=== PATIENT | female | born 1965 | race Caucasian/White ===

== ENCOUNTER 2017-06-18 19:50 | Inpatient (IN) | payer BC ==
--- NOTE | 2017-06-18 19:56 | PDOC ---
History of Present Illness - General Stated Complaint: SUICIDAL Time Seen by Provider: 06/18/17 19:56 - History of Present Illness Initial Comments: 06/18/17 20:16 Ms. Che is a 52 yo woman w/ pmh of anxiety and depression who presents following consumption of an unknown quantity of ambien and Xanax. Patient confirms this was an effort to take her life as she has been feeling down lately. Per [id number] who is with her this is at least her second attempt. The patient denies chest pain, shortness of breath, headache and dizziness. Denies fever, chills, nausea, vomit, diarrhea and constipation. Denies dysuria, frequency, urgency and hematuria. Allergies: Lorset / percocet (Passes out when she has these) Past History - Past Medical History Allergies/Adverse Reactions: Allergies Allergy/AdvReac Type Severity Reaction Status Date / Time No Known Allergies Allergy Verified 06/18/17 20:13 Review of Systems - Review of Systems Comments:: 06/18/17 20:21 GENERAL/CONSTITUTIONAL: No fever or chills. No weakness. HEAD, EYES, EARS, NOSE AND THROAT: No change in vision. No ear pain or discharge. No sore throat. CARDIOVASCULAR: No chest pain or shortness of breath RESPIRATORY: No cough, wheezing, or hemoptysis. GASTROINTESTINAL: No nausea, vomiting, diarrhea or constipation. GENITOURINARY: No dysuria, frequency, or change in urination. MUSCULOSKELETAL: No joint or muscle swelling or pain. No neck or back pain. SKIN: No rash NEUROLOGIC: No headache, vertigo, loss of consciousness, or change in strength/ sensation. ENDOCRINE: No increased thirst. No abnormal weight change HEMATOLOGIC/LYMPHATIC: No anemia, easy bleeding, or history of blood clots. ALLERGIC/IMMUNOLOGIC: No hives or skin allergy. *Physical Exam - Physical Exam Comments: 06/18/17 20:24 GENERAL: Awake, alert, and fully oriented, in no acute distress HEAD: No signs of trauma, normocephalic, atraumatic EYES: PERRLA, EOMI, sclera anicteric, conjunctiva clear ENT: Auricles normal inspection, hearing grossly normal, nares patent, oropharynx clear without exudates. Moist mucosa NECK: Normal ROM, supple, no lymphadenopathy, JVD, or masses LUNGS: No distress, speaks full sentences, clear to auscultation bilaterally HEART: Regular rate and rhythm, normal S1 and S2, no murmurs, rubs or gallops, peripheral pulses normal and equal bilaterally. ABDOMEN: Soft, nontender, normoactive bowel sounds. No guarding, no rebound. No masses EXTREMITIES: Normal inspection, Normal range of motion, no edema. No clubbing or cyanosis. NEUROLOGICAL: Cranial nerves II through XII grossly intact. Normal speech, normal gait, no focal sensorimotor deficits SKIN: Warm, Dry, normal turgor, no rashes or lesions noted. ED Treatment Course - LABORATORY CBC & Chemistry Diagram: 06/18/17 20:15 06/18/17 20:15 Medical Decision Making - Medical Decision Making 06/18/17 20:24 Ms. Che is a 52 yo female w/ pmh as described who presents following suicide attempt. Utox evaluation started, patient put on 1:1 observation, EKG ordered for cardiac evaluation, patient put on high school learning support teacher, fluids administered. 06/18/17 20:44 EKG tachycardic, otherwise regular rhythm, normal access, normal interval, no ST elevations or depressions. 06/18/17 21:17 Dr. Rayo paged for psych consult. Paging inpatient team for admission. 06/18/17 21:[address] Rayo who will evaluate in AM. 06/18/17 21:51 Patient admitted to hospitalist. *DC/Admit/Observation/Transfer Diagnosis at time of Disposition: Suicidal ideations Overdose Qualifiers: Encounter type: initial encounter Injury intent: intentional self-harm Qualified Code(s): T50.902A - Poisoning by unspecified drugs, medicaments and biological substances, intentional self-harm, initial encounter - Discharge Dispostion Condition at time of disposition: Guarded Admit: Yes - Referrals Referrals: ON STAFF,NOT [Primary Care Provider] - - Patient Instructions - Post Discharge Activity
[2017-06-18] MEDS ORDERED: SODIUM CHLORIDE 1,000 ML IV STA (20:16)
[2017-06-18 20:25] LABS: ADD RBC MORPHOLOGY YES; BASO % 0.3 % (0-2.0); EOS % 0.1 % (0-4.5); HEMATOCRIT 39.4 % (32.4-45.2); HEMOGLOBIN 13.4 GM/dL (10.7-15.3); LYMPH % 5.4 % (8-40); MCH 37.8 pg (25.7-33.7); MCHC 34.1 g/dl (32.0-36.0); MEAN CELL VOLUME 110.7 fl (80-96); MEAN PLT VOLUME 7.5 fl (7.5-11.1); MONO % 6.4 % (3.8-10.2); NEUT % 87.8 % (42.8-82.8); PLATELET COUNT 158 K/MM3 (134-434); RBC 3.55 M/mm3 (3.60-5.2); RDW 14.8 % (11.6-15.6); WHITE BLOOD COUNT 7.6 K/mm3 (4.0-10.0)
[2017-06-18 20:44] LABS: ACETAMINOPHEN < 2.000 ug/mL; ALBUMIN 3.5 g/dl (3.4-5.0); ALK PHOS 71 U/L (45-117); ANION GAP 11 (8-16); BILIRUBIN,TOTAL 0.8 mg/dL (0.2-1.0); BLOOD UREA NITROGEN 5 mg/dL (7-18); CALCIUM 8.1 mg/dL (8.5-10.1); CHLORIDE 107 mmol/L (98-107); CO2 24 mmol/L (21-32); CREATININE 0.5 mg/dL (0.55-1.02); GLUCOSE,RANDOM 87 mg/dL (74-106); POTASSIUM 3.7 mmol/L (3.5-5.1); SALICYLATE < 1.700 mg/dL; SGOT/AST 176 U/L (15-37); SGPT/ALT 101 U/L (12-78); SODIUM 142 mmol/L (136-145); TOT PROT 6.1 g/dl (6.4-8.2)
[2017-06-18 21:09] LABS: ANISOCYTOSIS 2+; PLATELET ESTIMATE DECREASED
--- NOTE | 2017-06-18 21:09 | PDOC ---
Attending Attestation - HPI HPI: 06/18/17 21:23 The patient is a 52 year old female with a significant past medical history of anxiety and depression who presents to the ED s/p suicide attempt earlier today. The patient reports taking an unknown quantity of ambien and Xanax as an effort to taker her life. Patient states she has been feeling down lately. As per brother in law, this is the patients second suicide attempt. Denies chest pain or shortness of breath. Denies headache and dizziness. Denies fever, chills, nausea, vomiting, or diarrhea. Denies dysuria or change in urinary output. Denies any other symptoms. Documentation prepared by Joel Cortes, acting as biomedical manager for Franco Renner MD - Physicial Exam PE: 06/18/17 21:23 Vitals: Triage Vital signs reviewed General Appearance: no acute distress, well nourished well developed, Head: Atraumatic, normocephalic Eyes: Pupils equal reactive round, extraocular movement intact Ears: TM's normal bilaterally; Nose: Nares patent bilaterally;no nasal congestion Throat: Posterior oropharynx without erythema, mucous membranes moist, Neck: Supple;No Nuchal rigidity Chest Wall: Nontender Cardiac: Regular rate and rhythm, no murmurs, no rubs, no gallops, Lungs: Clear to auscultation bilateral, good air movement bilaterally, Abdomen: Soft, nondistended, normal bowel sounds, nontender to palpation Rectal: Exam deferred Extremities: Full range of motion to all extremities, no cyanosis, clubbing, or edema Skin: Warm and dry, no rashes or lesions, no petechiae Neuro: AOX3; Cranial Nerves 2-12 grossly c intact, Strength intact to all extremities, Sensation intact to all extremities Psych: normal mood, normal affect <Joel Cortes - Last Filed: 06/18/17 21:23> - Resident Resident Name: Hector Wallace - ED Attending Attestation I have performed the following: I have examined & evaluated the patient, The case was reviewed & discussed with the resident, I agree w/resident's findings & plan, Exceptions are as noted - Medical Decision Making 52 with pmh sig for anxiety depression p/w intentional OD on xanex. Took "hand full" of pill VS stable. Labs wnl Pt. sleepy but arousable, maintaining airway. Will observe overnight to allow pt. to metabolize xanex, the psychiatry consultation in am Pt. placed on 1:1 watch, Psych consulted. <Franco Renner - Last Filed: 06/18/17 23:55>
--- NOTE | 2017-06-18 22:03 | PN ---
Teaching Attending Note Name of Resident: Whitney Elena ATTENDING PHYSICIAN STATEMENT I saw and evaluated the patient. Chart, data reviewed. I reviewed the resident's note and discussed the case with the resident. I agree with the resident's findings and plan as documented. SUBJECTIVE: 52 year old female with a significant past medical history of anxiety and depression presented s/p suicide attempt 06/18. Previous suicide attempt in 2017. The patient reported taking "handfull" of pills of ambien and Xanax in an effort to end her life. She also drank some whiskey. She lives in [place] but traveled to [place] to help some relatives. She reports being depressed because of some sicknesses in her family. OBJECTIVE: Last Vital Signs Temp Pulse Resp BP Pulse Ox 98.2 F 106 H 20 136/86 99 06/18/17 20:10 06/18/17 20:10 06/18/17 20:10 06/18/17 20:10 06/18/17 20:10 general- drowsy, nad, aaox3 heent- perrla, no scleral pallor, no scleral icterus neck -supple, no masses cv -s1+s2+rrr chest - cta abdomen -soft, nt, BS+ skin- scaly lesions on extensor surfaces of legs, forearms Abnormal Lab Results 06/18/17 06/18/17 06/18/17 20:15 20:15 20:40 RBC 3.55 L MCV 110.7 H MCH 37.8 H Neutrophils % 87.8 H Lymphocytes % 5.4 L BUN 5 L Creatinine 0.5 L Calcium 8.1 L AST 176 H ALT 101 H Total Protein 6.1 L Alcohol, Quantitative 86.23 H* EKG -nsr, no qtc prolongation ASSESSMENT AND PLAN: #52yo woman s/p suicide attempt with xanax and ambien, binge etoh intake with transaminitis on her chemistry. Psych control equipment electrician was contacted and aware. Poison control contact- spoke with Jason. Patient now clinically stable, admitted for observation and suicidal ideation. -tele/obs -NPO -psych consult -repeat hepatic panel -liver U/S -hep b, a, c serologies -urine toxicology -UA -IV fluid hydration -CXR -one to one observation for suicidal ideation -thiamine/folate/MV PO -avoid sedatives for now -heparin sc for DVT ppx
[2017-06-18] MEDS: SODIUM CHLORIDE 1,000 ML IV SCH (22:19)
[2017-06-18 22:42] LABS: COCAINE, UR NEGATIVE ng/ml (CUTOFF=300); METHADONE, UR NEGATIVE ng/ml (CUTOFF=300); OPIATES, URI NEGATIVE ng/ml (CUTOFF=300); PHENCYCLIDINE,URINE NEGATIVE ng/ml (CUTOFF=25); URINE AMPHETAMINES NEGATIVE ng/ml (CUTOFF=500); URINE BARBITURATES NEGATIVE ng/ml (CUTOFF=200)
[2017-06-18 22:43] LABS: URINE BENZODIAZEPINES POSITIVE ng/ml (CUTOFF=200)
--- NOTE | 2017-06-18 22:44 | HP ---
CHIEF COMPLAINT: medication overdose/suicide attempt psychiatrist Dr. Billy in [place] HISTORY OF PRESENT ILLNESS: 52 yr old woman with anxiety d/o brought in by family after patient admits to takin 8 xanax and 1 lexapro pill with 1 glass of whiskey in a suicide attempt due to feeling overwhelmed. She has been caring for her for the last year after he had a fistula, her father, her mother and she were found to have influenza type a earlier this year and providing care for everyone has increased stress level. she was in [place] to help care for her 's parents. This is her 2nd attempt, 1 previous psych admission for 2 days for anxiety. 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 Pollo Billy in (30d supply) - last picked up escitalopram 10mg tablets prescribed by Dr. Pollo Billy in (30d supply) - last picked up zolpidem 5mg tablets prescribed by Dr. Pollo Billy in 2017 (30d supply) REVIEW OF SYSTEMS CONSTITUTIONAL: Absent: fever, chills, diaphoresis, generalized weakness, malaise, loss of appetite, weight change HEENT: Absent: rhinorrhea, nasal congestion, throat pain, throat swelling, difficulty swallowing, mouth swelling, visual changes CARDIOVASCULAR: Absent: chest pain, syncope, palpitations, irregular heart rate, lightheadedness , peripheral edema RESPIRATORY: Absent: cough, shortness of breath, dyspnea with exertion, orthopnea, wheezing, stridor, hemoptysis GASTROINTESTINAL: Absent: abdominal pain, abdominal distension, nausea, vomiting, diarrhea, constipation, melena, hematochezia GENITOURINARY: Absent: dysuria, frequency, urgency, hesitancy, hematuria, flank pain, genital pain MUSCULOSKELETAL: Absent: myalgia, arthralgia, joint swelling, back pain, neck pain SKIN: Absent: rash, itching, pallor HEMATOLOGIC/IMMUNOLOGIC: Absent: easy bleeding, easy bruising, lymphadenopathy, frequent infections ENDOCRINE: Absent: unexplained weight gain, unexplained weight loss, heat intolerance, cold intolerance NEUROLOGIC: Absent: headache, focal weakness or paresthesias, dizziness, unsteady gait, seizure, mental status changes, bladder or bowel incontinence PSYCHIATRIC: Present: anxiety,depression, suicidal ideation - denies currently in ED Absent: homicidal ideation, hallucinations PHYSICAL EXAMINATION Vital Signs - 24 hr 06/18/17 20:10 Temperature 98.2 F Pulse Rate 106 H Respiratory 20 Rate Blood Pressure 136/86 O2 Sat by Pulse 99 Oximetry (%) GENERAL: Awake, alert with mild tiredness, and fully oriented, in no acute distress. HEAD: Normal with no signs of trauma. EYES: Pupils equal, round and reactive to light, extraocular movements intact, sclera anicteric, conjunctiva clear. No lid lag. EARS, NOSE, THROAT: oropharynx clear without exudates. Moist mucous membranes. no thrush NECK: Normal range of motion, supple without lymphadenopathy, JVD, or masses. LUNGS: Breath sounds equal, clear to auscultation bilaterally. No wheezes, and no crackles. No accessory muscle use. HEART: Regular rhythm, tachycardia, normal S1 and S2 without murmur, rub or gallop. ABDOMEN: obese, Soft, nontender, not distended, normoactive bowel sounds, no guarding, no rebound, no masses. No hepatomegaly or splenomegaly. MUSCULOSKELETAL: Normal range of motion at all joints. No bony deformities or tenderness. No CVA tenderness. UPPER EXTREMITIES: 2+ radial pulses, warm, well-perfused. No cyanosis. No clubbing. No peripheral edema. LOWER EXTREMITIES: 2+ dp pulses, warm, well-perfused. No calf tenderness. No peripheral edema. NEUROLOGICAL: Cranial nerves II-XII intact. Normal speech. facial symmetry, 5/ 5 hand sr. director product management/biceps/triceps/shoulder extension and flexoin, 5/5 hip/knee and ankle flexion and extension. sensation intact. mild resting tremor in b/l UE. finger to nose in tact b/l. PSYCHIATRIC: Cooperative. Good eye contact. Appropriate mood and affect. denies visual or auditory hallucinations SKIN: Warm, dry, normal turgor, normal capillary refill. +scalr plaques on extensor areas. Laboratory Results - last 24 hr 06/18/17 06/18/17 06/18/17 20:15 20:15 20:40 WBC 7.6 RBC 3.55 L Hgb 13.4 Hct 39.4 MCV 110.7 H MCH 37.8 H MCHC 34.1 RDW 14.8 Plt Count 158 MPV 7.5 Neutrophils % 87.8 H Lymphocytes % 5.4 L Monocytes % 6.4 Eosinophils % 0.1 Basophils % 0.3 Platelet Estimate Decreased Platelet Comment No clumping noted Anisocytosis 2+ Microcytosis 1+ Sodium 142 Potassium 3.7 Chloride 107 Carbon Dioxide 24 Anion Gap 11 BUN 5 L Creatinine 0.5 L Creat Clearance w eGFR > 60 Random Glucose 87 Calcium 8.1 L Total Bilirubin 0.8 AST 176 H ALT 101 H Alkaline Phosphatase 71 Total Protein 6.1 L Albumin 3.5 Salicylates < 1.700 Acetaminophen < 2.000 Alcohol, Quantitative 86.23 H* ASSESSMENT/PLAN: 52 yr old woman with anxiety d/o placed on tele observation for drug and alcohol intoxication in a suicidal attempt awaiting psych consult. #Drug overdose in suicide attempt- benzodiazapine in utox + ETOH level of 86 - called poison control discussed with Jason, if no EKG changes and patient is conversant, repeat LFT's for trend, get salicylate and tylenol level(both negative), pt should only need supportive measures. - place on tele monitoring to monitor cardiac and continuous pulse - place on 1:1 monitoring - psych consult Dr. Rayo - continue NS - chest xray incase she aspirated #ETOH use - CIWA 2, monitor off librium for now - monitor for DT's - thiamine and folic acid po #transaminitis - likely etoh use or tyenol metabolites cause liver damage( however she denies tylenol intake) - r/o hepatitis, liver u/s for obstruction #DVT:hep sub tid #diet: NPO until mentation fully alert due to risk of aspiration, allow meds. Visit type - Emergency Visit Emergency Visit: Yes ED Registration Date: 06/18/17 Care time: The patient presented to the Emergency Department on the above date and was hospitalized for further evaluation of their emergent condition. - New Patient This patient is new to me today: Yes Date on this admission: 06/19/17 - Critical Care Critical Care patient: No Hospitalist Screening - Colonoscopy Questionnaire Colonoscopy Questionnaire: Colonoscopy Questionnaire - Patient: 50 - 75 years old and never had a screening colonoscopy: Unknown History of colon or rectal polyps, or CA: Unknown History of IBD, Crohn's disease or UC: Unknown History of abdominal radiation therapy as a child: Unknown - Relative: 1 with colon or rectal CA, or polyps at age 60 or younger: Unknown Colon or rectal CA diagnosed at age 45 or younger: Unknown Multiple relatives with colon or rectal CA: Unknown - Outcome: Screening Result: Negative Screen
[2017-06-18 22:55] LABS: URINE APPEARANCE CLEAR; URINE BILIRUBIN NEGATIVE (<2.0 mg/dL); URINE BLOOD NEGATIVE (NEGATIVE); URINE COLOR LTYELLOW; URINE GLUCOSE (UA) NEGATIVE (NEGATIVE); URINE KETONE 1+ (NEGATIVE); URINE LEUK ESTERASE NEGATIVE (NEGATIVE); URINE NITRITE NEGATIVE (NEGATIVE); URINE PROTEIN NEGATIVE (NEGATIVE); URINE UROBILINOGEN NEGATIVE mg/dL (0.2-1.0)
[2017-06-18 23:03] LABS: BILIRUBIN,DIRECT 0.5 mg/dL (0.0-0.2)
[2017-06-19 02:45] VITALS: BMI 25.7
[2017-06-19 03:43] LABS: ALBUMIN 3.3 g/dl (3.4-5.0); ANION GAP 8 (8-16); BILIRUBIN,TOTAL 1.3 mg/dL (0.2-1.0); BLOOD UREA NITROGEN 5 mg/dL (7-18); CALCIUM 7.6 mg/dL (8.5-10.1); CHLORIDE 106 mmol/L (98-107); CO2 28 mmol/L (21-32); CREATININE 0.5 mg/dL (0.55-1.02); GLUCOSE,RANDOM 82 mg/dL (74-106); POTASSIUM 3.7 mmol/L (3.5-5.1); SGOT/AST 138 U/L (15-37); SGPT/ALT 85 U/L (12-78); SODIUM 142 mmol/L (136-145); TOT PROT 5.7 g/dl (6.4-8.2)
[2017-06-19 03:45] LABS: ALK PHOS 68 U/L (45-117)
[2017-06-19] MEDS: HEPARIN NA (PORCINE) 5,000 UNITS/ML 1ML VIAL SQ SCH ×3 (06:07→21:44)
[2017-06-19 07:13] LABS: BASO % 0.6 % (0-2.0); EOS % 0.4 % (0-4.5); HEMATOCRIT 37.3 % (32.4-45.2); HEMOGLOBIN 12.9 GM/dL (10.7-15.3); LYMPH % 14.7 % (8-40); MCH 38.4 pg (25.7-33.7); MCHC 34.7 g/dl (32.0-36.0); MEAN CELL VOLUME 110.7 fl (80-96); MEAN PLT VOLUME 7.9 fl (7.5-11.1); MONO % 9.8 % (3.8-10.2); NEUT % 74.5 % (42.8-82.8); PLATELET COUNT 141 K/MM3 (134-434); RBC 3.37 M/mm3 (3.60-5.2); RDW 14.7 % (11.6-15.6); WHITE BLOOD COUNT 4.7 K/mm3 (4.0-10.0)
[2017-06-19 07:35] LABS: ALBUMIN 3.5 g/dl (3.4-5.0); BILIRUBIN,DIRECT 0.6 mg/dL (0.0-0.2); BILIRUBIN,TOTAL 1.6 mg/dL (0.2-1.0)
[2017-06-19 07:41] LABS: ALBUMIN 3.4 g/dl (3.4-5.0); ANION GAP 12 (8-16); BLOOD UREA NITROGEN 5 mg/dL (7-18); CALCIUM 7.9 mg/dL (8.5-10.1); CHLORIDE 105 mmol/L (98-107); CO2 24 mmol/L (21-32); CREATININE 0.5 mg/dL (0.55-1.02); GLUCOSE,RANDOM 81 mg/dL (74-106); MAGNESIUM 1.7 mg/dL (1.8-2.4); PHOSPHOROUS 2.9 mg/dL (2.5-4.9); POTASSIUM 3.8 mmol/L (3.5-5.1); SGOT/AST 133 U/L (15-37); SGPT/ALT 83 U/L (12-78); SODIUM 141 mmol/L (136-145)
[2017-06-19 07:43] LABS: ALK PHOS 70 U/L (45-117); BILIRUBIN,TOTAL 1.6 mg/dL (0.2-1.0); TOT PROT 5.8 g/dl (6.4-8.2)
[2017-06-19] MEDS: MULTIVITAMINS (DAILY MVI) TABLET (FP) PO SCH (09:27)
[2017-06-19] MEDS ORDERED: MAGNESIUM 2GM/50ML STERILE WATER IVPB IVPB ONE (10:38)
--- NOTE | 2017-06-19 10:38 | PN ---
Progress Note (short form) - Note Progress Note: Subjective: no fever ro chills , nO SI AT THIS TIME,. feels ashamed of her self. reports side effects to SSRIS and other deperession meds in past. no abd pain Objective: Vital Signs: Last Vital Signs Temp Pulse Resp BP Pulse Ox 98.8 F 114 H 18 161/96 97 06/19/17 08:44 06/19/17 08:44 06/19/17 08:44 06/19/17 08:44 06/19/17 08:44 Laboratory Results - last 24 hr 06/18/17 06/18/17 06/18/17 20:15 20:15 20:40 WBC 7.6 RBC 3.55 L Hgb 13.4 Hct 39.4 MCV 110.7 H MCH 37.8 H MCHC 34.1 RDW 14.8 Plt Count 158 MPV 7.5 Neutrophils % 87.8 H Lymphocytes % 5.4 L Monocytes % 6.4 Eosinophils % 0.1 Basophils % 0.3 Platelet Estimate Decreased Platelet Comment No clumping noted Anisocytosis 2+ Microcytosis 1+ Sodium 142 Potassium 3.7 Chloride 107 Carbon Dioxide 24 Anion Gap 11 BUN 5 L Creatinine 0.5 L Creat Clearance w eGFR > 60 Random Glucose 87 Calcium 8.1 L Phosphorus Magnesium Total Bilirubin 0.8 Direct Bilirubin 0.5 H AST 176 H ALT 101 H Alkaline Phosphatase 71 Total Protein 6.1 L Albumin 3.5 Urine Color Urine Appearance Urine pH Ur Specific [place] Urine Protein Urine Glucose (UA) Urine Ketones Urine Blood Urine Nitrite Urine Bilirubin Urine Urobilinogen Ur Leukocyte Esterase Urine HCG, Qual Salicylates < 1.700 Opiates Screen Methadone Screen Acetaminophen < 2.000 Barbiturate Screen Phencyclidine Screen Ur Amphetamines Screen MDMA (Ecstasy) Screen Benzodiazepines Screen Cocaine Screen U Marijuana (THC) Screen Alcohol, Quantitative 86.23 H* 06/18/17 06/18/17 06/18/17 22:11 22:11 22:42 WBC RBC Hgb Hct MCV MCH MCHC RDW Plt Count MPV Neutrophils % Lymphocytes % Monocytes % Eosinophils % Basophils % Platelet Estimate Platelet Comment Anisocytosis Microcytosis Sodium Potassium Chloride Carbon Dioxide Anion Gap BUN Creatinine Creat Clearance w eGFR Random Glucose Calcium Phosphorus Magnesium Total Bilirubin Direct Bilirubin AST ALT Alkaline Phosphatase Total Protein Albumin Urine Color Ltyellow Urine Appearance Clear Urine pH 6.0 Ur Specific [place] 1.009 Urine Protein Negative Urine Glucose (UA) Negative Urine Ketones 1+ H Urine Blood Negative Urine Nitrite Negative Urine Bilirubin Negative Urine Urobilinogen Negative Ur Leukocyte Esterase Negative Urine HCG, Qual Negative Salicylates Opiates Screen Negative Methadone Screen Negative Acetaminophen Barbiturate Screen Negative Phencyclidine Screen Negative Ur Amphetamines Screen Negative MDMA (Ecstasy) Screen Negative Benzodiazepines Screen Positive Cocaine Screen Negative U Marijuana (THC) Screen Negative Alcohol, Quantitative 06/19/17 06/19/17 06/19/17 03:10 06:25 06:25 WBC 4.7 D RBC 3.37 L Hgb 12.9 Hct 37.3 MCV 110.7 H MCH 38.4 H MCHC 34.7 RDW 14.7 Plt Count 141 MPV 7.9 Neutrophils % 74.5 Lymphocytes % 14.7 D Monocytes % 9.8 Eosinophils % 0.4 D Basophils % 0.6 Platelet Estimate Platelet Comment Anisocytosis Microcytosis Sodium 142 141 Potassium 3.7 3.8 Chloride 106 105 Carbon Dioxide 28 24 Anion Gap 8 12 BUN 5 L 5 L Creatinine 0.5 L 0.5 L Creat Clearance w eGFR > 60 > 60 Random Glucose 82 81 Calcium 7.6 L 7.9 L Phosphorus 2.9 Magnesium 1.7 L Total Bilirubin 1.3 H D 1.6 H D Direct Bilirubin AST 138 H 133 H ALT 85 H 83 H Alkaline Phosphatase 68 70 Total Protein 5.7 L 5.8 L Albumin 3.3 L 3.4 Urine Color Urine Appearance Urine pH Ur Specific [place] Urine Protein Urine Glucose (UA) Urine Ketones Urine Blood Urine Nitrite Urine Bilirubin Urine Urobilinogen Ur Leukocyte Esterase Urine HCG, Qual Salicylates Opiates Screen Methadone Screen Acetaminophen Barbiturate Screen Phencyclidine Screen Ur Amphetamines Screen MDMA (Ecstasy) Screen Benzodiazepines Screen Cocaine Screen U Marijuana (THC) Screen Alcohol, Quantitative 06/19/17 06:25 WBC RBC Hgb Hct MCV MCH MCHC RDW Plt Count MPV Neutrophils % Lymphocytes % Monocytes % Eosinophils % Basophils % Platelet Estimate Platelet Comment Anisocytosis Microcytosis Sodium Potassium Chloride Carbon Dioxide Anion Gap BUN Creatinine Creat Clearance w eGFR Random Glucose Calcium Phosphorus Magnesium Total Bilirubin 1.6 H Direct Bilirubin 0.6 H AST 138 H ALT 87 H Alkaline Phosphatase 70 Total Protein 6.0 L Albumin 3.5 Urine Color Urine Appearance Urine pH Ur Specific [place] Urine Protein Urine Glucose (UA) Urine Ketones Urine Blood Urine Nitrite Urine Bilirubin Urine Urobilinogen Ur Leukocyte Esterase Urine HCG, Qual Salicylates Opiates Screen Methadone Screen Acetaminophen Barbiturate Screen Phencyclidine Screen Ur Amphetamines Screen MDMA (Ecstasy) Screen Benzodiazepines Screen Cocaine Screen U Marijuana (THC) Screen Alcohol, Quantitative Physical Exam: NAD , awake , cooperative , oriented x23 Cv: RRR, no MRG Lungs: CTAB ext:no edema or erythema or tremor Lungs: CTAB Abd: soft, NT, ND ,NL BS Assessment/Plan: 52 y/o lady with h/o depression who presented after suicide attempt 1- Suicide attempt: to me admits to taking handful of ambien and one xanax, ( different report on admission ) - monitor on tele ( episodes of sinus tachy) - monitor liver function - monitor respiration - monitor for withdrawal sx - psych eval 2- Alcohol use . per her just on weekends. - monitor for withdrawal 3- transaminitis : likely due to acute liver injury form alcohol and benzo use. - US pending - trend 4- HLOC. DVT PX Visit type - Emergency Visit Emergency Visit: Yes ED Registration Date: 06/18/17 Care time: The patient presented to the Emergency Department on the above date and was hospitalized for further evaluation of their emergent condition. - New Patient This patient is new to me today: Yes Date on this admission: 06/19/17 - Critical Care Critical Care patient: No
--- NOTE | 2017-06-19 15:22 | CON.PSY ---
Psychiatry Consult Chief Complaint: 52 year old female, lives in [facility] with her . Patient seen along with and case and follow up discussed, Admitted with ingestion opf Mateo and Ambien. patient feels stupid for ytaking these pills and does not want to . she is seen by Dr Del Cid a psycjhiatrist in [facility]. Symptoms: reports: Suicidality, Anxiety - Previous Psychiatric Treatment Outpatient: Less than 6 mos ago Inpatient: One prior admission - Previous Substance Abuse Treatment Outpatient: None Inpatient: None - Reason for Previous Treatment Reason for Previous Treatment: Anxiety or Panic Disorder - Current Medications Current Medications: Active Medications Folic Acid (Folic Acid -) 1 mg PO DAILY [facility] Heparin Sodium (Porcine) (Heparin -) 5,000 unit SQ TID [facility] Last Admin: 06/19/17 14:04 Dose: 5,000 unit Sodium Chloride (Normal Saline -) 1,000 mls @ 75 mls/hr IV ASDIR [facility] Last Admin: 06/18/17 22:19 Dose: 75 mls/hr Multivitamins/Minerals/Vitamin C (Tab-A-Vit -) 1 tab PO DAILY [facility] Last Admin: 06/19/17 09:27 Dose: 1 tab Thiamine HCl (Vitamin B1 -) 100 mg PO DAILY [facility] - Allergies Allergies: Allergies Allergy/AdvReac Type Severity Reaction Status Date / Time No Known Allergies Allergy Verified 06/18/17 20:13 - Current Living Status Usual Living Arrangement: With Spouse - Current Mental Status Evaluation Appearance: Well Groomed Attitude: Cooperative - Affect Affect: Full Range Appropriateness: Appropriate to Content - Mood Mood: Anxious - Speech/Language Expressive: Coherent - Psychomotor Activity Psychomotor Activity: Normal - Thought Process Thought Process: Intact - Thought Content Hallucinations: Absent Delusions: Absent - Self Perception Self Perception: No Impairment - Cognition Attention: Alert Orientation: Time Memory, Immediate Recall: Intact Memory, Short Term: 3/3 Memory, Remote with Promptin/3 - Concentration Serial Sevens Intact: Yes Simple Calculations Intact: Yes - Abstraction Proverb Interpretation: Intact Judgement: Minimally Impaired - Insight Insight: Intact - Impulse Control Impulse Control: Minimally Impaired - Suicidal Ideation Suicidal Ideation: No (feels stup[id about what she has done impulsivly) - Homicidal Ideation Homicidal Ideation: No Assessment/Plan 1) D/C 1:1 2) Discharge in care of when medically stable. 3) will see Dr. Del Cid , Psychiatrist in [facility] on Tuesday to plan future treatment plan. 4) willing to take her Home.
--- NOTE | 2017-06-19 15:33 | EKG ---
Test Reason : Blood Pressure : / mmHG Vent. Rate : 107 BPM Atrial Rate : 107 BPM P-R Int : 150 ms QRS Dur : 080 ms QT Int : 348 ms P-R-T Axes : 049 003 -16 degrees QTc Int : 464 ms SINUS TACHYCARDIA POSSIBLE LEFT ATRIAL ENLARGEMENT NONSPECIFIC T WAVE ABNORMALITY ABNORMAL ECG NO PREVIOUS ECGS AVAILABLE Confirmed by ALE MCNAIR MD ([id number]) on 06/19/2017 3:33:09 PM Referred By: Confirmed By:ALE MCNAIR MD
[2017-06-19] MEDS: SODIUM CHLORIDE 1,000 ML IV SCH (21:46)
[2017-06-19] MEDS: THIAMINE HCL 100 MG TABLET (FP) PO SCH (22:31)
[2017-06-19] MEDS: FOLIC ACID 1 MG TABLET (FP) PO SCH (22:32)
[2017-06-20] MEDS: HEPARIN NA (PORCINE) 5,000 UNITS/ML 1ML VIAL SQ SCH (05:08)
[2017-06-20 08:01] LABS: ALBUMIN 3.5 g/dl (3.4-5.0); BLOOD UREA NITROGEN 4 mg/dL (7-18); CHLORIDE 106 mmol/L (98-107); PHOSPHOROUS 2.7 mg/dL (2.5-4.9); POTASSIUM 3.3 mmol/L (3.5-5.1); SGOT/AST 201 U/L (15-37); SODIUM 140 mmol/L (136-145)
[2017-06-20 08:05] LABS: ALK PHOS 74 U/L (45-117); ANION GAP 8 (8-16); BILIRUBIN,TOTAL 1.1 mg/dL (0.2-1.0); CALCIUM 8.5 mg/dL (8.5-10.1); CO2 26 mmol/L (21-32); CREATININE 0.5 mg/dL (0.55-1.02); GLUCOSE,RANDOM 124 mg/dL (74-106); MAGNESIUM 2.3 mg/dL (1.8-2.4); SGPT/ALT 113 U/L (12-78); TOT PROT 6.1 g/dl (6.4-8.2)
[2017-06-20] MEDS ORDERED: chlordiazePOXIDE HCL 25 MG CAPSULE PO PRN (09:27)
[2017-06-20 09:42] VITALS: BP 164/90; PULSE 113; TEMP 98.9
[2017-06-20] MEDS: FOLIC ACID 1 MG TABLET (FP) PO SCH (09:54)
[2017-06-20] MEDS: THIAMINE HCL 100 MG TABLET (FP) PO SCH (09:54)
[2017-06-20] MEDS: MULTIVITAMINS (DAILY MVI) TABLET (FP) PO SCH (09:54)
--- NOTE | 2017-06-20 13:39 | PN ---
Teaching Attending Note Name of Resident: Murali Arndt ATTENDING PHYSICIAN STATEMENT I saw and evaluated the patient. I reviewed the resident's note and discussed the case with the resident. I agree with the resident's findings and plan as documented. SUBJECTIVE: no fever or chills, feels much better today. anxious. denied SI OBJECTIVE: NAD , awake , cooperative , oriented x3 Cv: RRR, no MRG Lungs: CTAB ext:no edema or erythema or tremor ABd: soft, Nt, ND, NL BS Assessment/Plan: 52 y/o lady with h/o depression who presented after suicide attempt 1- Suicide attempt: cleared by psych . 2- Alcohol abuse 3- Transaminitis : worse, 4- tachycardia on tele . narrow complex, on reviewed tele . cold be due to possible starting withdrawal symptoms. plan was to keep in [facility] , investigate tachycardia with EKG. follow liver enzymes and treat for benzo withdrawal . pt decided to leave AMA even though risks of withdrawal seizures, falls, worsening liver function and even were explained to her . she verbalized understanding
[2017-06-20 14:14] LABS: HBSAG SCREEN Negative (Negative); HEP B CORE AB, TOT Negative (Negative)
--- NOTE | 2017-06-20 21:53 | DS ---
Physical Exam: SUBJECTIVE: Patient seen and examined at bedside. Patient feels well today. Only complaint is occasional fluttering in her chest. Tachycardia noted on Tele. OBJECTIVE: Vital Signs Period Temp Pulse Resp BP Sys/Portillo Pulse Ox Last 24 Hr 98.5 F-99.3 F 91-113 16-18 149-164/90-100 96-96 PHYSICAL EXAM GENERAL: The patient is awake, alert, and fully oriented, in no acute distress. HEAD: Normal with no signs of trauma. NECK: Trachea midline, full range of motion, supple. LUNGS: Breath sounds equal, clear to auscultation bilaterally, no wheezes, no crackles, no accessory muscle use. HEART: Regular rate and rhythm, S1, S2 without murmur, rub or gallop. ABDOMEN: Soft, nontender, nondistended, normoactive bowel sounds, no guarding, no rebound, no hepatosplenomegaly, no masses. EXTREMITIES: 2+ pulses, warm, well-perfused, no edema. NEUROLOGICAL: Cranial nerves II through X grossly intact. Normal speech, gait not observed. PSYCH: Normal mood, normal affect. SKIN: Warm, dry, normal turgor, no rashes or lesions noted. LABS Laboratory Results - last 24 hr 06/18/17 06/20/17 23:46 06:30 Sodium 140 Potassium 3.3 L Chloride 106 Carbon Dioxide 26 Anion Gap 8 BUN 4 L Creatinine 0.5 L Creat Clearance w eGFR > 60 Random Glucose 124 H Calcium 8.5 Phosphorus 2.7 Magnesium 2.3 Total Bilirubin 1.1 H D AST 201 H ALT 113 H Alkaline Phosphatase 74 Total Protein 6.1 L Albumin 3.5 Hepatitis A Ab Total Negative Hep Bs Antigen Negative Hep Bs Antibody Non reactive Hep B Core Total Ab Negative Hep C Ab Diagnostic <0.1 Liver Fibrosis Inter HOSPITAL COURSE: Date of Admission:06/18/17 The patient is a 52 yr old f w/ PMH Anxiety who was brought into the ED by family after the patient admitted to taking A combination of Xanax, Lexapro, alcohol and ambien (number and pill types changed thoghout admission) in a suicide attempt due to feeling overwhelmed. The patient had 1 previous suicide attempt and a psych admission in the past for anxiety. In the ED, she was found to have a Utox positive for benzodiazepines as well as an alcohol level of 86. The patient was also found to have elevated liver enzymes. An EKG showed sinus tachycardia. A CXR was WNL. An US of the RUQ showed fatty infiltration of the liver. The patient was admitted to telemetry for further workup and treatment. She was placed on 1:1 observation. Psychiatry was consulted. The patient was treated with normal saline, Thiamine, folic acid, and magnesium. The patient improved on this treatment and psychiatry cleared the patient for discharge into the custody of her . 1:1 observation was discontinued. The patient's hospital course was complicated by several episodes of tachycardia into the 160' s as well as elevated blood pressure into the 160's/ 90's. The patient was thought to be undergoing benzodiazepine withdrawal and was started on a librium taper. At this point, the patient expressed the desire to go home. The patient was A& Ox3 and exhibited no signs or symptoms indicating a lack of capacity to make her own decisions. She was informed of the potential risks of going home in her state including progressive benzodiazepine withdrawal with the possibility of seizures. She was informed that these seizures and other aspects of withdrawal could cause significant morbiditiy and mortality including stroke, anoxic brain injury and permanent disability. The patient verbalized an understanding of these risks and still desired to sign out against medical advice. The patient was urged to follow up with her pcp as well as a psychiatrist within 1 week of going home. She was informed that her LFTs were high and that she needed to follow up with her PCP to recheck them. Date of Discharge: 06/20/17 Minutes to complete discharge: 45 Discharge Summary Reason For Visit: SUICIDAL IDEATION DRUG OVERDOSE Condition: Guarded - Instructions Referrals: ON STAFF,NOT [Primary Care Provider] - Disposition: AGAINST MEDICAL ADVICE This patient is new to me today: Yes Date on this admission: 06/20/17 Emergency Visit: Yes ED Registration Date: 06/18/17 Care time: The patient presented to the Emergency Department on the above date and was hospitalized for further evaluation of their emergent condition. Critical Care patient: No - Discharge Referral Referred to [facility] No
== END 2017-06-20 11:18 | disposition left against medical advice (07) | DRG 918 ==
LOC: SUPCPDRO 19:50 → JER 19:50 → JERBED 21:51 → J4S 06-19 01:51 → OBSVTOIN 06-19 07:30
PROVIDERS: ADMIT Internal Medicine; ATTEND Internal Medicine
DX: T42.6X2A Poisoning by other antiepileptic and sedative-hypnotic drugs, intentional self-harm, initial encounter (principal); T42.4X2A Poisoning by benzodiazepines, intentional self-harm, initial encounter; Y92.89 Other specified places as the place of occurrence of the external cause; F10.10 Alcohol abuse, uncomplicated; R74.0 Nonspecific elevation of levels of transaminase and lactic acid dehydrogenase [LDH]; R00.0 Tachycardia, unspecified; F41.8 Other specified anxiety disorders
CPT/HCPCS: 36415; 71045-TC-FY; 76705-TC; 80053; 80076; 80307; 81003; 83735; 84100; 84703; 85025; 86704; 86706; 86708; 87340; 93005; 93010; 99285-25; G0378; J1644; J7030